=== PATIENT | female | born 1970 | race African-American/Black ===

== ENCOUNTER 2021-01-08 17:01 | Emergency (ER) | payer OTHER ==
[~2021-01-08] VITALS: Ht 172.7 cm; Wt 450.0 kg
[~2021-01-08 17:01] MED LIST: ALBU2.5V13 IH; AMLO5TAB4 PO; CLAR500T3 PO; MEGE400O PO; METR250T PO; MOME13HF2 INH; TOPUD PO; [UNRECOGNIZED DRUG - CODE]
[2021-01-08 18:22] LABS: HEMATOCRIT. 39.4 % (36.0-48.0); MEAN CORPUSCULAR HEMOGLOBIN 31.2 pg (28.0-32.0); MEAN CORPUSCULAR VOLUME 94.6 fL (81.0-99.0); MEAN PLATELET VOLUME 8.5 fl (7.4-10.4); PLATELET 242 x1000/uL (130-400); RED BLOOD CELL COUNT 4.17 mill/uL (4.2-5.4); RED CELL DISTRIBUTION WIDTH 15.6 % (11.6-14.6)
[2021-01-08 18:29] LABS: CHLORIDE 110 mEq/L (98-107)
[2021-01-08 18:32] LABS: PROTHROMBIN TIME 10.8 sec (9.6-11.0)
[2021-01-08 18:47] LABS: PLATELET ESTIMATE NORMAL
[2021-01-09 00:14] VITALS: BP 120/62
== END 2021-01-09 00:14 | disposition home or self-care (01) ==
LOC: ER 17:01
DX: R51.9 Headache, unspecified (principal); I10 Essential (primary) hypertension; W01.190A Fall on same level from slipping, tripping and stumbling with subsequent striking against furniture, initial encounter; Y93.89 Activity, other specified; Y92.018 Other place in single-family (private) house as the place of occurrence of the external cause
CPT/HCPCS: 36415; 80053; 85025; 93005; 99285

== ENCOUNTER 2023-02-04 00:53 | Emergency (ER) | payer OTHER ==
[~2023-02-04] VITALS: Ht 170.2 cm; Wt 150.0 kg
[~2023-02-04 00:53] MED LIST changes: +MOME13HF12 INH; -MOME13HF2 INH
[2023-02-04 00:57] VITALS: BP 115/67; O2SAT 98
[2023-02-04] MEDS ORDERED: ACETAMINOPHEN 325MG TABLET PO ONE (01:00)
[2023-02-04] MEDS ORDERED: ACET-2708 MT (02:40)
[2023-02-04 02:57] VITALS: PULSE 87; RESP 16; TEMP 98.4
== END 2023-02-04 03:06 | disposition home or self-care (01) ==
LOC: ER 00:53
DX: M25.512 Pain in left shoulder (principal); M25.561 Pain in right knee; I10 Essential (primary) hypertension; W18.39XA Other fall on same level, initial encounter; Y93.89 Activity, other specified; Y92.89 Other specified places as the place of occurrence of the external cause; Y99.8 Other external cause status; Z79.899 Other long term (current) drug therapy
CPT/HCPCS: 73030; 73562; 99284